=== PATIENT | female | born 1990 | race Caucasian/White ===

== ENCOUNTER 2021-10-28 06:51 | Emergency (ER) | payer OTHER, SELFPAY ==
--- NOTE | ~2021-10-28 | CT_ITS ---
EXAMINATION: CT ANGIOGRAM CHEST CLINICAL INFORMATION: Chest pain. Rule out aortic dissection COMPARISON: And bilateral adrenal glands unremarkable. Osseous structures: TECHNIQUE: Multiple axial images were obtained through the chest after the administration of 50 mL of Omnipaque 350 intravenous contrast. Extensive vascular post-processing including two-dimensional and three-dimensional reformatted images were created and reviewed on an independent workstation. This CT examination was performed using dose optimization techniques as appropriate, variously including the following: *Automated exposure control *Adjustment of mA and/or kV according to patient size (this includes techniques or standardized protocols for targeted exams where dose is matched to indication/reason for exam; i.e. extremities or head) *Use of iterative reconstruction technique DLP: 166 mGy-cm FINDINGS: MEDIASTINUM: There is good opacification of thoracic aorta without any evidence of aneurysm or dissection. There is normal three-vessel cervicocerebral artery branching. The pulmonary artery is well opacified without any intraluminal filling defect or narrowing. No pericardial effusion seen. The central trachea and the bronchi widely patent. The thyroid lobes are symmetrical and normal. LUNGS: The lungs are well-expanded and clear of acute pneumonic process. There is no pulmonary nodule, mass or consolidation. Pleura: There is no pleural thickening, effusion or pneumothorax. Axilla: There are small shotty bilateral inguinal lymph nodes measuring less than 8 mm. The chest wall is unremarkable. Upper abdomen: Visualized liver, spleen, adrenal glands and pancreas appears unremarkable. Osseous structures: No lytic or sclerotic process seen. CT/CT angio chest aorta IMPRESSION: No evidence of aortic dissection or aneurysm. No evidence of PE. The lungs are clear. Fleischner guidelines were followed.
--- NOTE | ~2021-10-28 | XR_ITS ---
EXAMINATION: XR CHEST CLINICAL INFORMATION: Chest wall and upper back pain COMPARISON: None TECHNIQUE: 2 views of the chest were obtained. FINDINGS: The cardiac silhouette does not appear enlarged. There is a medical office specialist projecting over the right atrium /atrial septal region probably representing an ASD closure device. Hilar and mediastinal contours are unremarkable. The lungs are clear. There is no pleural effusion or pneumothorax. Bony structures are unremarkable. XR/XR chest 2V IMPRESSION: No evidence for acute disease in the chest. ASD closure device.
[2021-10-28 07:08] VITALS: BP 126/68; PULSE 77; RESP 19; TEMP 36.6; O2SAT 99; BMI 19.2
--- NOTE | 2021-10-28 09:07 | ED.GENADULT ---
HPI - General Adult General Chief complaint: Back Pain/Injury Stated complaint: severe back pain, dizzy, nausea Time Seen by Provider: 10/28/21 08:38 Source: patient Mode of arrival: ambulatory Limitations: no limitations History of Present Illness HPI narrative: this is a 31 years old the female who presented to the emergency department with upper back pain since this morning, she states that she has pain when she take a deep breath, she states that the pain is in the upper back, she denies any fever,cough Onset (ago): hour(s) (4) Location: back (upper back) Radiation: non-radiation Severity: moderate Quality: aching Pain Consistency: constant Relieving factors: none Exacerbating factors: none Related Data Allergies Allergy/AdvReac Type Severity Reaction Status Date / Time sulfamethoxazole Allergy Intermediate HIVES Unverified 06/26/20 19:31 [From BACTRIM] trimethoprim [From BACTRIM] Allergy Intermediate HIVES Unverified 06/26/20 19:31 Sulfa (Sulfonamide Allergy Unknown hives Verified 05/19/20 00:00 Antibiotics) Review of Systems Review of Systems: Yes all other systems are reviewed and are negative ENT: Reports system reviewed and no additional complaints, except as documented Cardiovascular: Cardiovascular: Reports no additional cardiovascular complaints Respiratory: Respiratory: Reports no additional respiratory complaints Gastrointestinal: Gastrointestinal: Reports no additional gastrointestinal complaints Neurologic: Reports system reviewed and no additional complaints, except as documented PMFSH Social History Social History Advance Directives: No Advance Directives Information Provided: No Patient : No Physical Exam Vital Signs: Vital Signs: Last Vital Signs Temp 98.4 F 10/28/21 11:45 Pulse 73 10/28/21 11:45 Resp 16 10/28/21 11:45 BP 120/76 10/28/21 11:45 Pulse Ox 98 10/28/21 11:45 BMI result Body Mass Index 19.2 Const: General: cooperative HENMT: Head: Yes normal to inspection General nose exam: Normal external nose present Mouth: Normal oral and palatal mucosa present Neck: Neck: Yes normal visual inspection Thyroid: Thyroid normal Chest: Chest palpation & inspection: normal inspection of the chest Resp: Effort & Inspection: normal respiratory effort Auscultation: clear to auscultation bilaterally Cardio: Jugular venous distension: no JVD Rate: regular rate Rhythm: regular rhythm GI: Inspection: Yes normal to inspection Palpation (GI): Soft to palpation, not firm, nontender and no guarding : General: Yes no CVA tenderness Back/Spine/Pelvis: Back: no CVA tenderness Course Reevaluation(s) Reevaluation #1: I spoke with the who is PA he was concerned about an dissection a CTA was done was negative at this point we could discharge the patient home. At this point the patient is feeling better she will take ibuprofen as needed Medical Decision Making Lab Data Result diagrams: 10/28/21 08:56 10/28/21 08:56 Labs: Lab Results 10/28/21 10/28/21 10/28/21 Range/Units 08:56 08:56 08:56 WBC 7.5 (4.8-10.8) X10*3/uL RBC 4.62 (4.20-5.50) X10*6/uL Hgb 13.4 (12.0-16.0) g/dl Hct 40.4 (37.0-47.0) % MCV 87.4 (80.0-98.0) fL MCH 29.0 (27.0-33.0) pg MCHC 33.2 (31.0-35.0) g/dl RDW 12.8 (11.0-16.0) % Plt Count 222 (160-400) X10*3/uL MPV 11.2 (9.4-12.3) fL Immature Gran % (Auto) 0.5 H (0.0-0.4) % Neut % (Auto) 75.4 H (45-73) % Lymph % (Auto) 16.4 L (20-40) % Mccone % (Auto) 6.8 (2-11) % Eos % (Auto) 0.4 (0-4) % Baso % (Auto) 0.5 (0-2) % Lymph # (Auto) 1.2 (1.2-4.9) X10*3/uL Mccone # (Auto) 0.5 (0.1-1.2) X10*3/uL Eos # (Auto) 0.0 (0.0-0.4) X10*3/uL Baso # (Auto) 0.0 (0.0-0.2) X10*3/uL Abs Immat Gran (auto) 0.04 H (0.00-0.03) X10*3/uL Absolute Neuts (auto) 5.7 (2.0-8.3) x10*3/uL Absolute Nucleated RBC 0.000 (0.0-0.012) X10*3/uL Nucleated RBC % (auto) 0.0 (0.0-0.2) /100WBC D-Dimer High Sensitivty < 150 NG/ML Sodium 137 (135-145) mmol/L Potassium 4.3 (3.3-5.1) mmol/L Chloride 105 (96-108) mmol/L Carbon Dioxide 25 (22-29) mmol/L Anion Gap 11 L (12-20) BUN 14 (9-16) mg/dL Creatinine 0.74 (0.5-1.4) mg/dL Estim Creat Clear Calc 84.3 Estimated GFR > 60 Random Glucose 90 (60-115) mg/dL Calcium 9.8 (8.4-10.2) mg/dL Total Bilirubin 0.7 (0.0-1.0) mg/dL AST 19 (5-31) U/L ALT 13 (0-31) U/L Alkaline Phosphatase 50 (39-117) U/L Total Protein 7.6 (6.5-8.0) g/dL Albumin 4.7 (3.5-5.0) g/dL Beta HCG, Quant < 2 mIU/mL Imaging Data CT scan - chest: Radiologist's impression: FINDINGS: MEDIASTINUM: There is good opacification of thoracic aorta without any evidence of aneurysm or dissection. There is normal three-vessel cervicocerebral artery branching. The pulmonary artery is well opacified without any intraluminal filling defect or narrowing. No pericardial effusion seen. The central trachea and the bronchi widely patent. The thyroid lobes are symmetrical and normal. LUNGS: The lungs are well-expanded and clear of acute pneumonic process. There is no pulmonary nodule, mass or consolidation. Pleura: There is no pleural thickening, effusion or pneumothorax. Axilla: There are small shotty bilateral inguinal lymph nodes measuring less than 8 mm. The chest wall is unremarkable. Upper abdomen: Visualized liver, spleen, adrenal glands and pancreas appears unremarkable. Osseous structures: No lytic or sclerotic process seen. CT/CT angio chest aorta IMPRESSION: No evidence of aortic dissection or aneurysm. ? No evidence of PE. ? The lungs are clear. ? ? ? Discharge Plan Discharge Clinical Impression: Back pain Patient Disposition: Home, Self-Care Instructions: Back Pain (ED) Referrals: Noam Tolliver MD [Primary Care Provider] - 2 days Interventions: ED Discharge Assessment Last Done: 10/28/21 11:46 Discharge Date/Time: 10/28/21 11:47
[2021-10-28 09:24] LABS: MANUAL DIFF FLAG NO
[2021-10-28 09:27] LABS: Basophils Percent Auto 0.5 % (0-2); Eosinophils Percent Auto 0.4 % (0-4); Hematocrit 40.4 % (37.0-47.0); Hemoglobin 13.4 g/dl (12.0-16.0); Imm Gran Abs Auto 0.04 X10*3/uL (0.00-0.03); Imm Gran Pct Auto 0.5 % (0.0-0.4); Lymphocytes Absolute Auto 1.2 X10*3/uL (1.2-4.9); Lymphocytes Percent Auto 16.4 % (20-40); Mean Corpuscular HGB Conc 33.2 g/dl (31.0-35.0); Mean Corpuscular Volume 87.4 fL (80.0-98.0); Mean Platelet Volume 11.2 fL (9.4-12.3); Monocytes Absolute Auto 0.5 X10*3/uL (0.1-1.2); Monocytes Percent Auto 6.8 % (2-11); Neutrophils Absolute Auto 5.7 x10*3/uL (2.0-8.3); Neutrophils Percent Auto 75.4 % (45-73); Platelet Count 222 X10*3/uL (160-400); Red Blood Count 4.62 X10*6/uL (4.20-5.50); Red Cell Distribution Width 12.8 % (11.0-16.0); White Blood Count 7.5 X10*3/uL (4.8-10.8)
[2021-10-28 09:45] LABS: Alanine Aminotransferase 13 U/L (0-31); Albumin Level 4.7 g/dL (3.5-5.0); Alkaline Phosphatase 50 U/L (39-117); Anion Gap 11 (12-20); Aspartate Amino Transferase 19 U/L (5-31); Bilirubin Total 0.7 mg/dL (0.0-1.0); Blood Urea Nitrogen 14 mg/dL (9-16); Calcium 9.8 mg/dL (8.4-10.2); Carbon Dioxide 25 mmol/L (22-29); Chloride 105 mmol/L (96-108); Creatinine Clr Calc Pharmacy 84.3; Estimated Glomerular Filt Rate > 60; Glucose Random 90 mg/dL (60-115); Potassium 4.3 mmol/L (3.3-5.1); Sodium 137 mmol/L (135-145); Total Protein 7.6 g/dL (6.5-8.0)
[2021-10-28 09:52] LABS: HCG Quantitative < 2 mIU/mL
[2021-10-28 10:16] LABS: D Dimer High Sensitivity < 150 NG/ML
[2021-10-28] MEDS: Ibuprofen 800 MG TABLET PO (10:56)
[2021-10-28] MEDS: iohexoL 350 MG/ML 75 ML INFUS..BTL 70 ML IV (11:07)
[2021-10-28 11:45] VITALS: BP 120/76; PULSE 73; RESP 16; TEMP 36.9; O2SAT 98
== END 2021-10-28 11:47 | disposition home or self-care (01) ==
PROVIDERS: Emergency Provider Emergency Medicine; PCP Internal Medicine
DX: M54.50 Low back pain, unspecified (principal); R07.89 Other chest pain; R42 Dizziness and giddiness; Z79.899 Other long term (current) drug therapy
CPT/HCPCS: 36415; 71046; 71275; 80053; 84702; 85025; 85379; 99284; Q9967